=== PATIENT | male | born 1950 | race Caucasian/White ===

== ENCOUNTER 2020-02-11 15:40 | Emergency (ER) | payer BC ==
[2009-01-16 08:20] VITALS: BP 126/85
[~2020-02-11] VITALS: Ht 180.3 cm; Wt 108.2 kg
[~2020-02-11 15:40] MED LIST: ALEVE 220MG220 MG PO; ASPIRIN 81M81 MG/TA2 PO; BENICAR HCT 12.1 TA1 PO; BENICAR/HCTZ; BENICAR5 MG PO; BETAPACE 80MG80 MG PO; CHELATED MAGNE200 MG PO; COQ10150 MG PO; COSAMIN DS 4001 TAB PO; CRESTOR5 MG PO; FISH OIL1000 MG PO; FORTESTA10 MG/0.5 TP; LIVALO4 MG PO; NITROSTAT0.4 MG/TAB SL; PERCOCET 325 MG1 TA2 PO; VITAMIN D31000 IU PO; VYTORIN; XARELTO20 MG PO; cholesterol med
[2020-02-11 16:15] LABS: BASO % 0.3 % (0.0-2.0); EOS % 0.5 % (0-4.0); GRAN # 5.8 (1.4-6.5); GRAN % 74.3 % (42.2-75.2); HEMATOCRIT 50.4 % (42.0-52.0); HEMOGLOBIN 17.3 g/dl (13.5-18.0); LYMPH # 1.4 (1.2-3.4); LYMPH % 17.8 % (20.0-51.0); MEAN CELL VOLUME 92 fl (80.0-100.0); MEAN CORPUSCULAR HEMOGLOBIN 32 pg (27.0-31.0); MEAN CORPUSCULAR HGB CONC 34 g/dl (33.0-37.0); MEAN PLATELET VOLUME 9.9 fl (7.4-10.4); MONO # 0.5 (0.1-0.6); MONO % 6.7 % (1.7-9.3); PLATELET COUNT 210 K/mm3 (130-400); RED BLOOD COUNT 5.49 M/mm3 (4.20-5.60)
[2020-02-11 16:17] LABS: INR 1.3 (0.8-3.0); PROTHROMBIN TIME 15.1 SECONDS (9.7-12.8)
[2020-02-11 16:19] LABS: PARTIAL THROMBOPLASTIN TIME 36.2 SECONDS (26.0-37.0)
[2020-02-11 16:22] LABS: ALANINE AMINOTRANSFERASE 22 U/L (4-49); ALKALINE PHOSPHATASE 63 U/L (50-136); ANION GAP 11 mmol/L (7-16); AST,SGOT 29 U/L (15-37); BILIRUBIN,TOTAL 0.9 mg/dL (0.0-1.0); BLOOD UREA NITROGEN 21 mg/dL (9-20); CALCIUM 8.9 mg/dL (8.4-10.2); CARBON DIOXIDE 24 mmol/L (22-30); CHLORIDE 105 mmol/L (98-107); CREATININE, serum 1.06 (0.66-1.25); GLUCOSE 129 mg/dL (74-106); POTASSIUM 4.3 mmol/L (3.4-5.0); SODIUM 140 mmol/L (137-145); TOTAL PROTEIN 7.2 gm/dL (6.4-8.2)
[2020-02-11 16:47] LABS: TROPONIN-I < 0.012 ng/mL (0.000-0.035)
[2020-02-11] MEDS ORDERED: TOPROL XL 25MG25 MG PO (18:18)
[2020-02-11] MEDS ORDERED: ZYLOPRIM 300MG300 MG PO (18:19)
[2020-02-11 22:00] VITALS: BP 116/81; PULSE 88; TEMP 97.2
== END 2020-02-11 22:28 ==
LOC: COL.ER 15:40
PROVIDERS: Emergency Medicine
DX: R42 Dizziness and giddiness (principal); I48.91 Unspecified atrial fibrillation; I25.10 Atherosclerotic heart disease of native coronary artery without angina pectoris; I10 Essential (primary) hypertension; E78.5 Hyperlipidemia, unspecified; Z79.01 Long term (current) use of anticoagulants; Z79.82 Long term (current) use of aspirin; Z87.891 Personal history of nicotine dependence; Z95.5 Presence of coronary angioplasty implant and graft
CPT/HCPCS: J2060; J2405; J7030; Q9967

== ENCOUNTER 2023-08-20 09:00 | Outpatient (RCR) | payer MEDICARE, BC ==
[~2023-08-20 09:00] MED LIST changes: +BENICAR40 MG PO; +CIALIS20 MG PO; +LOPRESSOR 550 MG/TAB PO; +MASON NATURAL1200 MG PO; +NORCO 325 MG-51 TAB PO; +NORCO 325 MG-7.1 TAB PO; +REPATHA SU140 MG/1 M SQ; +TOPROL XL 25MG25 MG PO; +ULTRAM 50MG TAB50 MG PO; +ZYLOPRIM 300MG300 MG PO
== END 2023-08-30 | disposition home or self-care (01) ==
LOC: WSPT
DX: R42 Dizziness and giddiness (principal)